=== PATIENT | female | born 1985 | race Two or more races ===

== ENCOUNTER 2020-04-14 08:50 | Inpatient (IN) | payer SELFPAY ==
[~2020-04-14] VITALS: Ht 172.7 cm; Wt 72.6 kg
[2020-04-14] MEDS ORDERED: METHYLERGONOVINE MALEATE 0.2 MG/ML AMP IM ONE ×2 (08:59→09:30)
[2020-04-14] MEDS ORDERED: LACT. RINGERS/OXYTOCIN 20UNITS 1,000 ML IV ONE ×4 (08:59→10:35)
[2020-04-14] MEDS ORDERED: OXYTOCIN 10UNIT/ML 1ML VIAL ONE (09:22)
[2020-04-14] MEDS ORDERED: LIDOCAINE 2%HCL (LOCAL ANESTH.) INJ 20ML MDV ONE (09:28)
[2020-04-14] MEDS ORDERED: PHISODERM TOP SOLN 240ML BTL TOP PRN ×2 (09:30)
[2020-04-14] MEDS ORDERED: CARBOPROST TROMETHAMINE 250 MCG/1ML VIAL IM ONE (09:30)
[2020-04-14] MEDS ORDERED: DERMOPLAST 60ML BOTTLE TOP PRN ×2 (09:30)
[2020-04-14] MEDS ORDERED: LACTATED RINGER'S 1,000 ML IV SCH ×2 (09:30→20:00)
[2020-04-14] MEDS ORDERED: WITCH HAZEL-GLYCERIN PAD TOP PRN ×2 (09:30)
[2020-04-14] MEDS ORDERED: OXYTOCIN 10UNIT/ML 1ML VIAL IM ONE (09:30)
[2020-04-14] MEDS ORDERED: LIDOCAINE 2%HCL (LOCAL ANESTH.) INJ 20ML MDV IJ ONE ×2 (09:30)
[2020-04-14 09:51] LABS: Urine Bacteria MANY /hpf (None Seen); Urine Blood TRACE /uL (Negative); Urine Mucus FEW (None Seen); Urine Specific Gravity 1.019 (1.001-1.035); Urine WBC 13 /hpf (0 - 5)
[2020-04-14 10:10] LABS: Alcohol, Urine < 3.0 mg/dL (0-10); Amphetamine Screen, Urine POSITIVE (NEGATIVE); Barbiturate Scree,Urine NEGATIVE (NEGATIVE); Benzodiazephine Screen, Urine NEGATIVE (NEGATIVE); Cannabinoid Screen, Urine NEGATIVE (NEGATIVE); Cocaine Screen, Urine NEGATIVE (NEGATIVE); Phencyclidine Screen, Urine NEGATIVE (NEGATIVE)
[2020-04-14 10:16] LABS: Opiate Scree,Urine NEGATIVE (NEGATIVE)
[2020-04-14] MEDS ORDERED: LACT. RINGERS/OXYTOCIN 20UNITS 1,000 ML IV SCH ×2 (10:30→12:40)
[2020-04-14 11:14] LABS: Basophils # (auto) 0 10 ^3/uL (0-0.2); Basophils % (auto) 0.3 % (0.0-2.0); Eosinophils # (auto) 0 10 ^3/uL (0-0.8); Eosinophils % (auto) 0.3 % (0.0-7.0); Hematocrit 39.6 % (36.0-46.0); Hemoglobin 12.9 g/dL (12.2-16.2); Lymphocytes # (auto) 1.2 10 ^3/uL (0.4-5.4); Lymphocytes % (auto) 8.3 % (10.0-50.0); Mean Corpuscular Hemoglobin 27.7 pg (28.0-32.0); Mean Corpuscular Hgb Conc. 32.6 g/dL (32.0-36.0); Mean Corpuscular Volume 84.9 fL (80.0-100.0); Monocytes # (auto) 0.5 10 ^3/uL (0-1.3); Monocytes % (auto) 3.9 % (0.0-12.0); Neutrophils # (auto) 12.4 10 ^3/uL (1.6-8.6); Neutrophils % (auto) 87.2 % (37.0-80.0); Platelet Count (auto) 242 10^3/uL (140-450); Red Blood Cells 4.67 10^6/uL (4.0-5.20); Red Cell Distribution Width 15.1 % (11.8-14.3); White Blood Cell 14.2 10^3/uL (4.4-10.8)
[2020-04-14] MEDS: LABETALOL HCL 200 MG TAB PO SCH ×2 (11:16→22:27)
[2020-04-14 11:23] LABS: Albumin 2.4 g/dL (3.4-5.0); Calcium 8.4 mg/dL (8.5-10.1); Potassium 3.8 mmol/L (3.5-5.1)
[2020-04-14 11:28] LABS: BUN/Creatinine Ratio 10.2; Bilirubin, Total 0.3 mg/dL (0.2-1.0); Total Protein 6.7 g/dL (6.4-8.2); Uric Acid 2.9 mg/dL (2.6-6.0)
[2020-04-14 11:56] LABS: INR 0.87 (0.9-1.15); Partial Thromboplastin Time 23.7 sec (23.0-31.2)
--- NOTE | 2020-04-14 12:25 | NUR ---
Ambulation: Patient OOB with standby assistance by RN. Patient ambulated to bathroom with steady gait. Patient able to void 400ml without difficulty. Pericare teaching provided with returned demonstration by patient. Clean gown provided and bed linen changed. Patient ambulated back to bed with steady gait and no distress noted.
--- NOTE | 2020-04-14 13:00 | NUR ---
Assessment Unable to asses patient due not answering appropriately. Informed DAMIAN Thorpe to contact me when she has baby drug screen results. Will follow up in the Morning.
[2020-04-14 14:19] VITALS: BP 129/61
[2020-04-14] MEDS: IBUPROFEN 600 MG TAB PO PRN ×2 (15:14→22:28)
--- NOTE | 2020-04-14 17:19 | NUR ---
CALLED DR. ROSADO WITH UPDATE WBC 14.2 AND POSITIVE NITRATES IN URINE , NEW ORDERS RECEIVED GIVE 1 GRAM ROCEPHIN DAILY /IVPB.
--- NOTE | 2020-04-14 17:20 | NUR ---
DR ROSADO MADE AWARE OF POSITIVE UDS AMPHETAMINES.
[2020-04-14] MEDS ORDERED: PREN-96 PO (17:28)
[2020-04-14] MEDS ORDERED: SODIUM CHLORIDE 0.9% 1,000 ML IV ONE (17:30)
[2020-04-14] MEDS ORDERED: cefTRIAXone 1GM/50ML D5W 50 ML IV SCH (17:30)
[2020-04-14 17:54] VITALS: BP 123/63
[2020-04-14 23:30] VITALS: BP 137/63
[2020-04-15] VITALS (7 sets, daily range): BP systolic 123–148; BP diastolic 60–82
--- NOTE | 2020-04-15 00:12 | NUR ---
CPS CALL PLACED TO CPS REPORTING HOTLINE. REPORT MADE ON BEHALF OF FABIÁN, BABY BOY REGARDING MOB, ANIKA LOCKWOOD AND SUPPOSED FOB ABBY GARNER TO [place] CPS WORKER. REFERENCE # [id number].
[2020-04-15 07:06] LABS: RPR Non Reactive (Non Reactive)
[2020-04-15] MEDS: IBUPROFEN 600 MG TAB PO PRN ×3 (07:07→18:33)
[2020-04-15] MEDS: LABETALOL HCL 200 MG TAB PO SCH ×2 (10:20→21:36)
--- NOTE | 2020-04-15 11:00 | NUR ---
SPOKE TO DR SUMMERS IN REGARDS IV INFILTRATION, MADE FRANCO OF PT IS ON ANTIBIOTIC ROCEPHIN, PER DR SUMMERS ORDER RECEIVED TO LEAVE IV OUT AND CARRIED OUT
--- NOTE | 2020-04-15 15:30 | NUR ---
Bedside nurse informed me CPS has been informed and baby is on hold and CPS will be taking baby.
[2020-04-16] MEDS: IBUPROFEN 600 MG TAB PO PRN ×2 (02:13→09:16)
[2020-04-16 03:00] VITALS: BP 115/68
[2020-04-16 07:16] VITALS: BP 132/76
--- NOTE | 2020-04-16 09:46 | NUR ---
Gavino barton performed. PT cooperative.
[2020-04-16] MEDS: LABETALOL HCL 200 MG TAB PO SCH (10:07)
[2020-04-16 11:05] VITALS: BP 131/63
--- NOTE | 2020-04-16 12:15 | NUR ---
Discharge: Discharge instructions given as ordered. Pt encouraged to follow up with [facility] as instructed. All questions and concerns addressed. Patient verbalized understanding. Discharge: Patient taken to vehicle via ambulatory with all personal belongings, accompanied by staff. No distress noted at time of departure, no adverse changes in status since initial assessment.
--- NOTE | 2020-04-16 12:32 | NUR ---
Labetalol 200 mg PO BID called in to [facility] on [address] for one month supply per Dr. Ramos verbal order.
== END 2020-04-16 12:15 | disposition home or self-care (01) | DRG 807 ==
LOC: LDRP 08:50 → OBSVTOIN 08:50
PROVIDERS: ADMIT Specialist; ATTEND Specialist
PROC: 10E0XZZ Delivery of Products of Conception, External Approach (ICD-10-PCS; principal; 2020-04-14)
PROC: 0KQM0ZZ Repair Perineum Muscle, Open Approach (ICD-10-PCS; 2020-04-14)
DX: O45.93 Premature separation of placenta, unspecified, third trimester (principal); Z37.0 Single live birth; Z3A.35 35 weeks gestation of pregnancy; O70.1 Second degree perineal laceration during delivery; Z20.828 Contact with and (suspected) exposure to other viral communicable diseases
CPT/HCPCS: 36415; 59025; 59409; 80053; 80307; 81001; 84550; 85025; 85384; 85610; 85730; 86592; 86703; 86762; 86850; 86900; 86901; 87340; 96360; 96361; G0378; J0696; J2590